=== PATIENT | male | born 1965 | race Caucasian/White ===

== ENCOUNTER 2019-02-09 13:47 | Day surgery (SDC) | payer OTHER, SELFPAY ==
[2019-02-09 14:50] VITALS: BP 121/78; PULSE 65; RESP 16; TEMP 36.3; O2SAT 99; BMI 29.7
[2019-02-09] MEDS: SODIUM CHLORIDE 0.9% 1,000 ML 200 ML IV (14:50)
--- NOTE | 2019-02-09 15:13 | PM.OP.ENDO ---
Operative Date/Time/Diagnoses Date of procedure: 02/09/19 Time of procedure: 15:13 Pre-op diagnosis: 1. Screening for colon cancer Post-op diagnosis: same Procedure & Clinicians Study performed: 1. Colonoscopy Same procedure as scheduled: Yes Indications: 1. Screening for colon cancer Surgeon: Delmis Oconnell Procedure Notes SCOAP/Timeout: 15:13 Procedure in detail: ENDOSCOPIST: Delmis Oconnell MD PROCEDURE: Colonoscopy INDICATIONS: 1. Screening for colon cancer MEDICATION: Levsin 0.125 mg sublingual, incremental doses of Versed and fentanyl until appropriate level sedation achieved. ASA CLASS: 2 CECAL WITHDRAWAL TIME: 9 minutes COMPLICATIONS: None. EXTENT OF PROCEDURE: Cecum. QUALITY OF PREP: Good with portions of liquid stool. PROCEDURE: Prior to insertion of the colonoscope, a digital rectal examination was accomplished with circumferential palpation of the distal rectal mucosa without significant findings being noted. The high-definition colonoscope was passed into the rectum in the usual fashion and advanced over to the cecum without difficulty. The ileocecal valve, appendiceal stoma, and medial wall all could be inspected and no abnormalities were seen. ASCENDING COLON: As the colonoscope was withdrawn, care was taken to expose and inspect the haustral folds and no abnormalities were seen. HEPATIC FLEXURE: Normal no polyps, diverticula or other abnormalities. TRANSVERSE COLON: Normal no polyps, diverticula or other abnormalities. DESCENDING COLON: Normal no polyps, diverticula or other abnormalities. SIGMOID COLON: Normal no polyps, diverticula or other abnormalities. RECTUM: Normal. J maneuver was produced. There was no significant perianal disease. The J maneuver was broken. The remainder of the rectum was inspected and there was no external hemorrhoid disease. The scope was withdrawn. IMPRESSION: 1. Normal colonoscopy PLAN: 1. Repeat colonoscopy in 10 years The possibility of a missed lesion including a malignancy has been discussed with the patient previously. Potential alarm symptoms have been discussed and should be reported immediately. Scope withdrawal time: 9 minutes Specimen(s): none sent Complications: none Impression: Normal colonoscopy Recommendations: Colonscopy in 10 years Follow up: weeks (With PCP as scheduled) Disposition: PACU
[2019-02-09] MEDS: fentaNYL 250 MCG/5 ML INJ IV (15:28)
[2019-02-09] MEDS: MIDAZOLAM 5 MG/5 ML VIAL IV (15:29)
[2019-02-09 15:51] VITALS: BP 104/61; PULSE 71; RESP 12; TEMP 36.8; O2SAT 94
[2019-02-09 15:59] VITALS: BP 103/63; PULSE 71; RESP 12; O2SAT 94
[2019-02-09 16:04] VITALS: BP 100/66; PULSE 70; RESP 15; O2SAT 95
[2019-02-09 16:09] VITALS: BP 111/76; PULSE 72; RESP 12; TEMP 36.8; O2SAT 96
[2019-02-09 16:10] VITALS: BP 111/84; PULSE 65; RESP 10; O2SAT 96
--- NOTE | 2019-02-09 16:34 | SUR.PHASEII ---
IV dc'd at 1615 no iv noted pre op but caheer tip f 20 gauge was intact and site was asymptomatic
== END 2019-02-09 16:25 | disposition home or self-care (01) ==
PROVIDERS: Visit Provider Student in an Organized Health Care Education/Training Program
PROC: 0DJD8ZZ Inspection of Lower Intestinal Tract, Via Natural or Artificial Opening Endoscopic (ICD-10-PCS; CPT 45378; principal; 2019-02-09 16:00)
DX: Z12.11 Encounter for screening for malignant neoplasm of colon (principal); E66.9 Obesity, unspecified; Z68.30 Body mass index [BMI] 30.0-30.9, adult
CPT/HCPCS: G0121; J2250; J3010

== ENCOUNTER 2019-03-12 06:11 | Day surgery (SDC) | payer OTHER, SELFPAY ==
[2019-03-09 08:27] VITALS: BMI 29.2
[2019-03-12] VITALS (20 sets, daily range): BP systolic 98–136; BP diastolic 62–77; PULSE 64–92; RESP 12–20; TEMP 36–36.9; O2SAT 76–99; BMI 29.2
[2019-03-12] MEDS: LACTATED RINGERS 1,000 ML 42 ML IV ×3 (07:15→15:28)
--- NOTE | 2019-03-12 07:50 | PM.HP.1 ---
History of Present Illness History of Present Illness Date Patient Seen: 03/12/19 Time Patient Seen: 07:42 Chief complaint: [id number] Narrative: Patient is a gentleman here for repair of umbilical hernia. He may also have a defect just above that into the left. Patient History Medical History Beta thalassemia (Acute) Hyperlipidemia (Acute) Impaired fasting glucose (Acute) Microcytic hypochromic anemia (Acute) Obesity (Acute) Umbilical hernia (Acute) Surgical History History of colonoscopy (Acute) Hx of eye surgery (Resolved ~2002) Hx of knee surgery (Resolved ~1999) Hx of vasectomy (Resolved ~1993) Family History Mother Diabetes mellitus Social History (System 02/06/19 @ 15:41 by Edin Mendez) marital status: household members: spouse occupational status: employed Smoking Status: Never smoker alcohol intake: never substance use type: does not use Family & Social History Family History Mother Diabetes mellitus Social History: household members spouse Tobacco & Substance use: Smoking Status Never smoker alcohol intake never Substance Use Type does not use Meds Home Medications and Allergies Home Medications Medication Instructions Recorded Confirmed Type No Known Home Medications 02/06/19 03/09/19 History Allergies Allergy/AdvReac Type Severity Reaction Status Date / Time No Known Drug Allergies Allergy Verified 03/12/19 07:23 Review of Systems Review of Systems ROS Unobtainable: All systems reviewed & are unremarkable except as noted in HPI and below Exam Vital Signs (past 8 hours): - 03/12/19 07:26 Temperature 97.3 F L Pulse Rate 73 Respiratory Rate 15 Blood Pressure 130/77 Pulse Oximetry 99 Oxygen Delivery Method Room Air Narrative Exam Narrative: Pleasant cooperative patient no apparent distress. Lungs are clear to auscultation. No rales or rhonchi. Heart regular rate and rhythm no murmur gallop. Abdomen is soft nontender without mass. He has an obvious umbilical hernia. He reports a protrusion above into the left of that as well. Patient is alert and oriented x3. Assessment & Plan Assessment & Plan narrative: Patient for repair of a hernia. I have discussed the operation including the possible use of mesh. Risks of bleeding infection recurrence discussed. He appears to understand wishes to proceed.
--- NOTE | 2019-03-12 07:54 | PM.PREOP ---
Pre-operative Note Interval Note History & Physical reviewed/Exam performed by Physician: Yes Changes to H&P: No
[2019-03-12] MEDS: CEFAZOLIN 2 GM/100 ML FROZ.PIGGY IV (08:10)
--- NOTE | 2019-03-12 08:24 | SUR.OPER ---
Supine on padded OR bed, head on pillow, arms secured on padded arm boards at <90 degrees abduction, legs uncrossed, safety belt at thigh, tape over blanket over lower legs.
[2019-03-12] MEDS: BUPIVACAINE 0.5% (PF) VIAL 30 ML INJ (08:32)
--- NOTE | 2019-03-12 10:12 | PM.OP.1 ---
Operative Date/Time/Diagnoses Date of procedure: 03/12/19 Time of procedure: 10:00 Pre-op diagnosis: Umbilical hernia. Ventral hernia. Post-op diagnosis: same Procedure & Clinicians Procedure: Repair with underlay of mesh. Hernias combined by removing a fascial tissue bridge between the 2. Same procedure as scheduled: Yes Indications: Symptomatic hernia Surgeon: Adam Noel Click Yes if Unassisted: Yes Anesthesia Type: General Operative Notes Findings: Two hernias adjacent to 1 another. One at the umbilicus and 1 just above Closure Type: primary Specimen(s): none sent Prosthetic devices, grafts, tissues, transplants, or devices: 8 cm circular mesh under laid Estimated Blood Loss (mL): 15 Blood products transfused: none Procedure in detail: Patient was placed supine on the operating table underwent general and endotracheal anesthesia. He was prepped and draped in the usual fashion. Vertical incision was made just above the umbilicus and carried down into the subcu. Hernia sac was identified and from surrounding structures. There was a 2nd hernia at the umbilicus and extended the incision along the edge of the left side of the umbilicus. I dissected the 2 hernia sacs and removed them and reduce the fat that was within them. This was preperitoneal fat. Staying in the preperitoneal space I dissected the fat off the anterior abdominal wall and placed a circular piece of mesh 8 cm in diameter under. I sutured it circumferentially with interrupted 0 Ethibond suture. I then closed the fascial defect.(the small fascial bridge between the 2 was removed as it was not going to be beneficial to preserve it and it made placement of the mesh quite difficult.) The subcu was closed with interrupted 3 0 Vicryl in the umbilicus was tacked down to the fascia with 3 0 Vicryl. The skin was closed running 4 0 Vicryl subcuticular stitch and Steri-Strips. Dressing was applied and the patient was taken recovery room extubated in good condition. Complications: none Post-operative Condition: stable Disposition: PACU
[2019-03-12] MEDS: fentaNYL 100 MCG/2 ML INJ 50 MCG IV ×2 (10:31→10:42)
[2019-03-12] MEDS: HYDROMORPHONE 2 MG INJ 0.5 MG IV (10:58)
[2019-03-12] MEDS: OXYCODONE/ACETAMINOPHEN 5/325 TABLET 1 TAB PO ×2 (11:16→11:57)
[2019-03-12] MEDS: ONDANSETRON 4 MG/2 ML INJ IV ×2 (12:29→15:25)
--- NOTE | 2019-03-12 12:29 | SUR.PHASEII ---
C/P nausea, no emesis; Rx given. at bedside
[2019-03-12] MEDS: PROCHLORPERAZINE 10 MG/2 ML VIAL IV (13:58)
[2019-03-12] MEDS: MAG HYDROX/ALUM/SIMETH 30 ML UDC PO (14:39)
[2019-03-12] MEDS: SCOPOLAMINE 1 PATCH TOP (15:28)
--- NOTE | 2019-03-12 20:32 | SUR.PHASEII ---
1320 Pt reported 3/10 abd pain, nausea resolved. 1330 Pt c/o heartburn. Dr. Noel notified, Compazine ordered and given. O2 sat low 90s. IS provided and pt able to inhale to 1500mls. 1500 Pt reported pain 3/10 and heartburn better. 1513 Pt vomited suddenly, 300+mls of clear fluid. Dr. Noel notified, Zofran and Scopolamine patch ordered. Meds given at 1529. Instructed pt and spouse to remove Scopolamine patch within 72 hours and wash hands after removing patch. Dr. Alarcon at bedside, vvo for 500 ml IV fluid bolus. Bolus given. 1605 Pt dozed and woke, reported feeling better. Pt able to sit and stand without difficulty. Abd drsg CDI. IV d/c'd.
--- NOTE | 2019-03-12 20:43 | SUR.PHASEII ---
1320 PT reported 3/10 abd pain. Denied nausea 1330 PT c/o heartburn, Dr. Noel notified. Compazine ordered and given. O2 sat in the low 90s. I.S. provided. Pt able to inhale to 1500mls. 1500 Pt reported feeling better, pain 3/10. Heartburn resolved. 1513 Pt suddenly vomited 300+ mls of clear fluid. Pt cleaned, linens changed. Dr. Noel notified, zofran and scopolamine patch placed at 1529. Dr. Alarcon at bedside, vvo for 500ml IV fluid bolus. Bolus infusing. 1605 Bolus complete. Pt able to nap and woke, reported feeling better. Abd drsg CDI. Pt able to sit and stand without difficulty.
== END 2019-03-12 16:12 | disposition home or self-care (01) ==
PROVIDERS: PCP Student in an Organized Health Care Education/Training Program; Visit Provider Specialist
PROC: (CPT 49560; principal; 2019-03-12 07:45)
DX: K43.9 Ventral hernia without obstruction or gangrene (principal); K42.9 Umbilical hernia without obstruction or gangrene
CPT/HCPCS: 49560; 49568; C1781; J0330; J0690; J0780; J1100; J1170; J2405; J2704; J3010

== ENCOUNTER → 2025-04-18 11:46 | Outpatient (CLI) | payer OTHER, SELFPAY ==
--- NOTE | 2025-04-18 11:49 | DI.RAD.S_ITS ---
PROCEDURE: XR KNEE RT 3V INDICATIONS: R KNEE PAIN TECHNIQUE: 3 views of the knee were acquired. COMPARISON: None. FINDINGS: Bones: There are no osseous abnormalities. Joints: Moderate patellofemoral and mild medial tibial femoral degeneration appreciated. Small suprapatellar effusion .. Soft tissues: Normal IMPRESSION: Degeneration Dictated by: Greg Stewart M.D. on 04/19/2025 at 11:58 Approved by: Greg Stewart M.D. on 04/19/2025 at 11:59
== END ==
PROVIDERS: PCP Family Medicine; Referring Provider Family Medicine; Visit Provider Family Medicine
DX: M17.11 Unilateral primary osteoarthritis, right knee (principal); M25.561 Pain in right knee
CPT/HCPCS: 73562

== ENCOUNTER → 2025-05-13 13:47 | Outpatient (CLI) | payer OTHER, SELFPAY ==
--- NOTE | 2025-05-13 13:51 | DI.MRI.S_ITS ---
PROCEDURE: MR KNEE RT WO CON INDICATIONS: acute right knee pain TECHNIQUE: Noncontrast sagittal PD fast spin echo and T2 fast spin echo with fat saturation, sagittal 3-D FLASH with fat saturation; coronal T1 spin echo and PD fast spin echo with fat saturation, and axial PD fast spin echo with fat saturation through the knee. COMPARISON: None. FINDINGS: Quality: Adequate Menisci: Medial meniscus: Complex tear of the body and posterior horn. Meniscal extrusion. Lateral meniscus: Intact Cruciate ligaments: Anterior cruciate ligament: Intact Posterior cruciate ligament: Intact Collateral ligaments: Medial collateral ligament: Edema along the ligament with no visible tear per Lateral collateral ligament complex: Popliteus tendon insertional tendinopathy. True lateral collateral ligament intact. Biceps femoris and iliotibial band are unremarkable. Extensor mechanism: Quadriceps tendon: Intact Patellar tendon: Intact Retinaculum: Intact Fat pads: Unremarkable Cartilage: Non uniform near full-thickness cartilage thinning in the weight- bearing portion of the medial femoral condyle. Full-thickness cartilage fissuring in the central trochlear groove. Bones: No fracture. Small marginal osteophytes. Conspicuous vascularity at the proximal tibia diaphysis, likely benign. Fluid spaces: Joint: Physiologic fluid. Popliteal cyst: None Other: Mild prepatellar bursitis. IMPRESSION: 1. Complex tear medial meniscus. 2. Grade 1 medial collateral ligament sprain. 3. Severe osteoarthritis. 4. Prepatellar bursitis. Dictated by: Deniz Mcgee M.D. on 05/14/2025 at 10:54 Approved by: Deniz Mcgee M.D. on 05/14/2025 at 11:03
== END ==
LOC: MRI 13:49
PROVIDERS: PCP Family Medicine; Referring Provider Family Medicine; Visit Provider Physician Assistant Surgical
DX: S83.231A Complex tear of medial meniscus, current injury, right knee, initial encounter (principal); S83.411A Sprain of medial collateral ligament of right knee, initial encounter; M17.11 Unilateral primary osteoarthritis, right knee; M71.561 Other bursitis, not elsewhere classified, right knee; M25.561 Pain in right knee
CPT/HCPCS: 73721